=== PATIENT | female | born 1945 | race Caucasian/White ===

== ENCOUNTER 2023-11-16 11:28 | Outpatient (AMB) | payer MEDICARE, SELFPAY ==
--- NOTE | 2023-11-16 11:38 | MHC.OFFWIV ---
Intake Vital Signs 11/16/23 11:42 Height 5 ft 4 in Weight 185 lb 6 oz BMI 31.8 BP 110/68 Blood Pressure Location Rt brachial Position Sitting Pulse 74 Pulse Source Pulse Oximeter Temp 97.2 F Temp Source Temporal Artery Scan Pulse Oximetry (%) 96 Oxygen Delivery Method Room Air Intake Visit Reasons: RAMP ATTENDANT Ear ache Intake Note: pt is here for ear ache Patient Tobacco Use Status: Never used Tobacco Allergies No Known Allergies Allergy (Verified 11/16/23 11:39) Do you need a note to return to daycare/school/sports/work: No HPI HPI Comments History of Present Illness Details Patient is an 78-year-old female complaining of left ear pain x1 week. She states she feels like there is something in her ear and it is painful when she touches the skin in front of her ear. She denies any changes in hearing or fevers. She denies a history of diabetes and denies pain on the bone behind her ear. PFSH Social History Patient Tobacco Use Status: Never used Tobacco Review of Systems Const All systems reviewed & are unremarkable except as noted in HPI and below Physical Exam Vital Signs: Last Vital Signs Temp 97.2 F 11/16/23 11:42 Pulse 74 11/16/23 11:42 BP 110/68 11/16/23 11:42 Pulse Ox 96 11/16/23 11:42 Oxygen Delivery Method Room Air 11/16/23 11:42 BMI result Body Mass Index 31.8 Const General: cooperative, healthy appearing, comfortable and no acute distress Orientation/consciousness: patient oriented x3 Limitations: no limitations HEENT Head: Yes normal to inspection Ears: TM normal on the right, mastoids normal and Abnormal EAC present (Left side) erythema, edema and EAC tenderness General nose exam: Normal external nose present, Normal nares present and No nasal discharge present Face and sinus: Yes normal facial exam Mouth: Normal oral and palatal mucosa present and moist mucous membranes Eyes General: appearance normal, both eyes and all related structures Neck Neck: Yes normal visual inspection Skin General skin exam: no rashes or lesions noted Neuro General: patient oriented x3 Extrem General: Yes normal to inspection and Yes no clubbing, cyanosis or edema Assessment & Plan Assessment & Plan (1) Otitis externa: Code(s): H60.90 - Unspecified otitis externa, unspecified ear Qualifiers: Otitis externa type: unspecified type Chronicity: acute Laterality: left Qualified Code(s): H60.502 - Unspecified acute noninfective otitis externa, left ear Plan: Prescription sent to pharmacy, advised if no improvement in the next week to follow up with her PCP or return here. Plan See above Medications: New [id number] 3.5-10,000-1 mg/mL-unit/mL-% 4 drps otic (ear) left Q8H 7 days 10 mL 0RF Coding Level of Care Code New Pt Level 3 (83450) Diagnoses Acute otitis externa of left ear, unspecified type H60.502 Otitis externa type: unspecified type Chronicity: acute Laterality: left
[2023-11-16 11:42] VITALS: BP 110/68; PULSE 74; TEMP 36.2; O2SAT 96; BMI 31.8
== END 2023-11-16 12:25 | disposition home or self-care (01) ==
PROVIDERS: PCP Family Medicine; Visit Provider Physician Assistant
DX: H60.502 Unspecified acute noninfective otitis externa, left ear (principal)
CPT/HCPCS: 99203